=== PATIENT | female | born 1970 | race Caucasian/White ===

== ENCOUNTER 2017-02-20 17:22 | Emergency (ER) | payer OTHER | END 2017-02-20 18:15 | disposition left against medical advice (07) | LOC: ER1 17:22 | DX: I71.02 Dissection of abdominal aorta (principal) | CPT/HCPCS: 99283 ==

== ENCOUNTER → 2017-02-20 | Outpatient (CLI) | payer OTHER | LOC: CT 15:20 | DX: I71.00 Dissection of unspecified site of aorta (principal); K43.9 Ventral hernia without obstruction or gangrene; R10.9 Unspecified abdominal pain; I71.4 Abdominal aortic aneurysm, without rupture | CPT/HCPCS: 71270; J7050; Q9962; Q9963 ==